=== PATIENT | male | born 1960 | race Caucasian/White ===

== ENCOUNTER 2019-10-07 10:29 | Outpatient (CLI) | payer MEDICARE, SELFPAY ==
--- NOTE | 2019-10-07 10:36 | XRR_ITS ---
PROCEDURE INFORMATION: Exam: XR Left Shoulder Exam date and time: 10/07/2019 10:50 AM Age: 59 years old Clinical indication: Pain; Shoulder; Left; Additional info: L shoulder pain TECHNIQUE: Imaging protocol: XR Left shoulder. Views: 2 or more views. COMPARISON: No relevant prior studies available. FINDINGS: Bones/joints: Normal. Soft tissues: Normal. XR/XR shoulder LT min 2V* [id number] IMPRESSION: No acute findings.
== END 2019-10-07 10:30 | disposition home or self-care (01) ==
LOC: RAD 10:34
PROVIDERS: PCP Nurse Practitioner Family; Visit Provider Internal Medicine
DX: M25.512 Pain in left shoulder (principal)
CPT/HCPCS: 73030

== ENCOUNTER 2020-09-22 14:38 | Outpatient (CLI) | payer MEDICARE, SELFPAY ==
--- NOTE | 2020-09-22 14:47 | XR_ITS ---
WS: [id number] Exam: XR cervical spine 3V* [id number] Date/Time of Exam: 09/22/2020 2:47 PM Reason For Exam: BACK PAIN Comparison 02/29/2016. No fracture or dislocation. There is straightening. Mild to moderate facet DJD at all levels. Mild de generative disc thinning at C5-6 and C6-7. The odontoid is intact. Normal paraspinal soft tissues. XR/XR cervical spine 3V* [id number] IMPRESSION: 1. No fracture or malalignment. 2. Mild degenerative changes. Straightening.
--- NOTE | 2020-09-22 14:47 | XR_ITS ---
WS: [id number] Exam: XR thoracic spine 2V [id number] Date/Time of Exam: 09/22/2020 2:47 PM Reason For Exam: BACK PAIN Comparison 12/08/2014. No fracture or dislocation. Slight spondylosis. Osteopenia. Normal paraspinal soft tissues. XR/XR thoracic spine 2V 51230 IMPRESSION: 1. No fracture or malalignment. 2. Minimal degenerative changes and osteopenia.
--- NOTE | 2020-09-22 14:48 | XR_ITS ---
WS: [id number] Exam: XR lumbar spine 2-3V* [id number] Date/Time of Exam: 09/22/2020 2:48 PM Reason For Exam: BACK PAIN No fracture or dislocation. Disc spaces are preserved. Posterior elements are intact. Osteopenia. Min imal spondylosis. XR/XR lumbar spine 2-3V* 16795 IMPRESSION: 1. No fracture or malalignment. 2. Minimal degenerative changes and osteopenia.
== END 2020-09-22 14:39 | disposition home or self-care (01) ==
PROVIDERS: PCP Nurse Practitioner Family; Visit Provider Internal Medicine
DX: M54.5 Low back pain (principal); M54.6 Pain in thoracic spine; M54.2 Cervicalgia; M85.88 Other specified disorders of bone density and structure, other site
CPT/HCPCS: 72040; 72070; 72100

== ENCOUNTER 2020-09-29 06:00 | Outpatient (RCR) | payer MEDICARE, SELFPAY | END 2020-10-28 23:59 | disposition home or self-care (01) | LOC: SPT 06:00 | PROVIDERS: PCP Nurse Practitioner Family; Referring Provider Nurse Practitioner Family; Visit Provider Nurse Practitioner Family | DX: M85.80 Other specified disorders of bone density and structure, unspecified site (principal); M51.34 Other intervertebral disc degeneration, thoracic region; M51.36 Other intervertebral disc degeneration, lumbar region | CPT/HCPCS: 97161 ==

== ENCOUNTER → 2020-10-06 08:05 | Outpatient (BNVA) | payer MEDICARE, SELFPAY | PROVIDERS: PCP Nurse Practitioner Family; Referring Provider Nurse Practitioner Family; Visit Provider Specialist | DX: R20.2 Paresthesia of skin (principal); R20.0 Anesthesia of skin; Z87.891 Personal history of nicotine dependence | CPT/HCPCS: 95910 ==

== ENCOUNTER → 2020-10-27 15:39 | Outpatient (BNVA) | payer MEDICARE, SELFPAY | PROVIDERS: PCP Nurse Practitioner Family; Referring Provider Nurse Practitioner Family; Visit Provider Orthopaedic Surgery | DX: M54.9 Dorsalgia, unspecified (principal); R20.0 Anesthesia of skin; R20.2 Paresthesia of skin; M54.2 Cervicalgia | CPT/HCPCS: 72040 ==

== ENCOUNTER 2021-05-19 14:05 | Outpatient (CLI) | payer MEDICARE, SELFPAY ==
--- NOTE | 2021-05-19 14:26 | XR_ITS ---
WS: [id number] DEXA (DUAL ENERGY X-RAY ABSORPTIOMETRY) Bone mineral density was performed using a [employer] machine. HISTORY: Degenerative DISC DISEASE COMPARISON: None available. Lumbar spine BMD (L1-L4): 1.331 g/cm2 T score: 0.9 Z score: 0.6 Total hip BMD: Left: 0.998 g/cm2. T score: -0.7 Z score: -0.7 Right: 1.014 g/cm2. T score: -0.6 Z score: -0.6 10 year probability of a major osteoporotic fracture is 5%. XR/XR DEXA axial skeleton* 15698 IMPRESSION: NORMAL BONE MINERAL DENSITY based upon the WHO classification for females.
== END 2021-05-19 14:06 | disposition home or self-care (01) ==
PROVIDERS: PCP Nurse Practitioner Family; Visit Provider Nurse Practitioner Family
DX: M51.34 Other intervertebral disc degeneration, thoracic region (principal); M51.36 Other intervertebral disc degeneration, lumbar region
CPT/HCPCS: 77080

== ENCOUNTER 2021-05-20 13:42 | Outpatient (CLI) | payer MEDICARE, SELFPAY ==
--- NOTE | 2021-05-20 14:03 | XR_ITS ---
WS: [id number] Cervical spine, 3 views, 05/20/2021 Clinical Data: NUMBNESS TINGLING IN L ARM Comparison: Cervical spine, 10/27/2020. Findings: No compression fractures are seen. The disc heights are normal. There is a minimal spur and calcification at the anterior inferior aspect of C5. There is no prevertebral soft tissue swelling. The odontoid is unremarkable. The soft tissues of the neck and the lung apices are normal. XR/XR cervical spine 3V* [id number] Impression: Small spur at C5.
== END 2021-05-20 13:43 | disposition home or self-care (01) ==
PROVIDERS: PCP Nurse Practitioner Family; Visit Provider Nurse Practitioner Family
DX: R20.2 Paresthesia of skin (principal); M46.02 Spinal enthesopathy, cervical region
CPT/HCPCS: 72040

== ENCOUNTER → 2021-10-14 15:55 | Outpatient (BNVA) | payer MEDICARE, SELFPAY | PROVIDERS: PCP Nurse Practitioner Family; Visit Provider Orthopaedic Surgery | DX: M54.9 Dorsalgia, unspecified (principal) | CPT/HCPCS: 72072 ==

== ENCOUNTER 2022-01-12 07:56 | Outpatient (CLI) | payer MEDICARE, SELFPAY ==
--- NOTE | 2022-01-12 08:13 | XR_ITS ---
WS: [id number] Thoracic spine, AP and lateral views, 01/12/2022 Clinical Data: BACK PAIN THORACIC REGION Comparison: Thoracic spine, 10/14/2021. Findings: No compression fractures are seen. The disc heights are normal. Minimal osteoarthritic change of the thoracic vertebral bodies is present. XR/XR thoracic spine 2V [id number] Impression: Mild osteoarthritis of the thoracic spine.
--- NOTE | 2022-01-12 17:58 | XR_ITS ---
WS: [id number] Left shoulder, 3 views, 01/12/2022 Clinical Data: SHOULDER JOINT Pain, left Comparison: None. Findings: No fractures or dislocations are seen. The AC joint is normal. The adjacent left clavicle, left scapu la and ribs are normal. The soft tissues are unremarkable. XR/XR shoulder LT min 2V* [id number] Impression: Negative left shoulder.
== END 2022-01-12 07:57 | disposition home or self-care (01) ==
LOC: RAD 08:04
PROVIDERS: PCP Nurse Practitioner Family; Visit Provider Nurse Practitioner Family
DX: M25.512 Pain in left shoulder (principal); M47.814 Spondylosis without myelopathy or radiculopathy, thoracic region
CPT/HCPCS: 72070; 73030

== ENCOUNTER → 2022-04-11 14:18 | Outpatient (BNVA) | payer MEDICARE, SELFPAY | PROVIDERS: PCP Nurse Practitioner Family; Visit Provider Surgery | DX: Z86.010 Personal history of colon polyps (principal) | CPT/HCPCS: 99203 ==

== ENCOUNTER → 2022-04-12 15:31 | Outpatient (BNVA) | payer MEDICARE, SELFPAY | PROVIDERS: PCP Nurse Practitioner Family; Visit Provider Orthopaedic Surgery | DX: M54.6 Pain in thoracic spine (principal); M54.9 Dorsalgia, unspecified; M47.816 Spondylosis without myelopathy or radiculopathy, lumbar region | CPT/HCPCS: 72070; 72110; 99213 ==

== ENCOUNTER 2022-06-15 09:30 | Day surgery (SDC) | payer MEDICARE, SELFPAY ==
[2022-06-14 12:43] VITALS: BMI 30.7
[2022-06-15] MEDS: sodium chloride 0.9% 1,000 ML 30 ML IV (10:14)
--- NOTE | 2022-06-15 10:19 | P.ANESASSM_ITS ---
Pre-Anesthetic Assessment Height/Weight: Height 1.91 m Weight 111.584 kg Preop Diagnosis: History of colon polyps Operation Date: 06/15/22 11:00 Proposed Procedures p Colonoscopy 53968,Z86.010(Not Applicable) - Erickson Moreira MD Familial anesthetic complications: None Was Beta Lena taken within 24 hours: N/A Was Clonidine taken within 24 hours: N/A Last intake: Intake Last Liquid Date 06/14/22 Last Liquid Time 13:00 Last Solid Date 06/13/22 Last Solid Time 09:00 Social No alcohol and No tobacco Exam alert, oriented x 3, clear to auscultation bilaterally and regular rate & rhythm Airway Submandibular: within normal limits Cervical ROM: Other (Decreased ROM) Mallampati: Class III Dentition: false History/ROS No significant history except as noted and No significant complaints Pulmonary Cough CV/HEM Hypertension None reported Hepatic Enlarged liver GI Hiatal Hernia Metabolic Diabetes Mellitus, Hyperlipidemia and Thyroid Disease Musc/skel Osteoarthritis/DJD Neuropsych Anxiety, Cerebrovascular Accident (13-15 years ago; no deficits), Depression and Neuropathy Anesthetic Plan ASA status: 3 Anesthesia: Anesthesia Evaluation, General and MAC Risk of > 500 ml blood loss (7ml/kg in children): No Medications/Allergies Home Medications Medication Instructions Recorded Confirmed Last Taken Type celecoxib 200 mg capsule 200 mg PO QDAY 08/27/19 06/15/22 06/14/22 08:00 History fenofibrate nanocrystallized 145 145 mg PO QDAY 08/27/19 06/15/22 06/13/22 18:00 History mg tablet gabapentin 300 mg capsule 300 mg PO TID 08/27/19 06/15/22 06/13/22 18:00 History levothyroxine 50 mcg capsule 50 mcg PO QDAY 08/27/19 06/15/22 06/14/22 08:00 History sertraline 50 mg tablet 50 mg PO QDAY 08/27/19 06/15/22 06/14/22 08:00 History sitagliptin 50 mg-metformin 1,000 1 tab PO BID 08/27/19 06/15/22 06/13/22 18:00 History mg tablet (Janumet) trazodone 100 mg tablet 150 mg PO QDAY 08/27/19 06/15/22 06/13/22 18:00 History peg 3350-electrolytes 236 240 ml PO Q10M #4,000 mL 04/11/22 06/15/22 06/14/22 Rx gram-22.74 gram-6.74 gram-5.86 gram solution (Golytely) atorvastatin 20 mg tablet 20 mg PO DAILY 06/14/22 06/15/22 06/14/22 08:00 History hydrocodone 5 mg-acetaminophen 325 1 tab PO DIRECTED 06/14/22 06/15/22 06/14/22 History mg tablet 0800 lisinopril 2.5 mg tablet 2.5 mg PO DAILY 06/14/22 06/15/22 06/14/22 08:00 History Allergies Allergy/AdvReac Type Severity Reaction Status Date / Time No Known Allergies Allergy Verified 06/15/22 10:12 [facility] Anesthesia Medical History Depression Diabetes History of colon polyps Hyperlipidemia Hypertension Hypothyroidism Surgical History History of appendectomy History of eye surgery Family History Unknown Cancer Patient's uncle had history of colon cancer Denies family history of Anesthesia complication Bleeding disorder Social History Smoking and tobacco status: former smoker Quit status (tobacco): has quit using tobacco Former quit date comment: 8 months ago Second hand smoke exposure: Yes Alcohol intake: never Adopted: No Caregiver/support person: Yes Lives independently: Yes Household members: none Housing: House Marital status: Single Highest education level completed: High School Graduate service: No Current occupational status: disabled Current occupational exposures/hazards: No Pets and animals: No History of recent travel: No Sexually active: No Current gender identity: Male Brigitte/Hinduism: Spiritism Special brigitte needs: No Agree to transfusion: No Financial difficulty paying for basics: Decline to Answer Data Anesthesia Cardiac Studies: No Data to Display
[2022-06-15 10:20] LABS: Glucose Point of Care 107 mg/dL (70-110)
--- NOTE | 2022-06-15 12:10 | W.PM.OPSFHP ---
Same Day Surgery H&P Indication for Procedure/HPI DATE OF PROCEDURE: June 15, 2022 CHIEF COMPLAINT/INDICATIONFOR SURGICAL PROCEDURE: History of colon polyp PREOP DIAGNOSIS: History of colon polyps PLANNED PROCEDURE: Operation Date: 06/15/22 11:00 Proposed Procedures p Colonoscopy 55809,Z86.010(Not Applicable) - Erickson Moreira MD 04/11/2022 This is a pleasant 62 years old gentleman referred to my practice to discuss surveillance colonoscopy.? He denies bleeding per rectum or history of colon cancer.? He did have a colonoscopy many years ago and showed polyps. 06/15/2022 Patient comes today for surveillance colonoscopy ROS All systems have been reviewed negative except as for the above or per problem list. Medications/Allergies* Home Medications Medication Instructions Recorded Confirmed Type celecoxib 200 mg capsule 200 mg PO QDAY 08/27/19 06/15/22 History fenofibrate nanocrystallized 145 145 mg PO QDAY 08/27/19 06/15/22 History mg tablet gabapentin 300 mg capsule 300 mg PO TID 08/27/19 06/15/22 History levothyroxine 50 mcg capsule 50 mcg PO QDAY 08/27/19 06/15/22 History sertraline 50 mg tablet 50 mg PO QDAY 08/27/19 06/15/22 History sitagliptin 50 mg-metformin 1,000 1 tab PO BID 08/27/19 06/15/22 History mg tablet (Janumet) trazodone 100 mg tablet 150 mg PO QDAY 08/27/19 06/15/22 History atorvastatin 20 mg tablet 20 mg PO DAILY 06/14/22 06/15/22 History hydrocodone 5 mg-acetaminophen 325 1 tab PO DIRECTED 06/14/22 06/15/22 History mg tablet lisinopril 2.5 mg tablet 2.5 mg PO DAILY 06/14/22 06/15/22 History Allergies/Adverse Reactions Allergy/AdvReac Type Severity Reaction Status Date / Time No Known Allergies Allergy Verified 06/15/22 12:11 Pertinent History/Comorbid Conditions* Medical History (Updated 10/06/20 @ 09:39 by Sylvia Suarez MD) Depression Diabetes History of colon polyps Hyperlipidemia Hypertension Hypothyroidism Surgical History (Updated 08/29/19 @ 09:45 by Erickson Moreira MD) History of appendectomy History of eye surgery Family History (Updated 08/29/19 @ 09:48 by Erickson Moreira MD) Cancer Unknown Patient's uncle had history of colon cancer Denies family history of Anesthesia complication Bleeding disorder Social History Smoking and tobacco status: former smoker Quit status (tobacco): has quit using tobacco Former quit date comment: 8 months ago Second hand smoke exposure: Yes Alcohol intake: never Adopted: No Caregiver/support person: Yes Lives independently: Yes Household members: none Housing: House Marital status: Single Highest education level completed: High School Graduate service: No Current occupational status: disabled Current occupational exposures/hazards: No Pets and animals: No History of recent travel: No Sexually active: No Current gender identity: Male Brigitte/Taoist: Gnosticist Special brigitte needs: No Agree to transfusion: No Financial difficulty paying for basics: Decline to Answer Pertinent Exam Findings alert, oriented x 3, regular rate & rhythm and procedure specific exam findings (Abdominal exam nontender nondistended soft) Recommendations Surgery/Procedure today (Colonoscopy with possible biopsy and possible polypectomy) Coding Level of Care Code Acute Resource Analyst for Karolyn Donaldson
[2022-06-15 12:42] VITALS: BP 112/72; PULSE 72; RESP 16; TEMP 36.1; O2SAT 97
[2022-06-15 12:47] VITALS: BP 133/85; PULSE 75; RESP 18; O2SAT 95
[2022-06-15 12:57] VITALS: BP 145/88; PULSE 66; RESP 18; O2SAT 96
--- NOTE | 2022-06-15 14:43 | ANE.PACU2 ---
Inpatient post-anesthesia follow up: Airway intact: Yes Vital signs: Temperature 97.0 F Pulse Rate 66 Respiratory Rate 18 Blood Pressure 145/88 Pulse Oximetry 96 Oxygen Delivery Me thod Room Air Oxygen Flow Rate Fraction of Inspir ed Oxygen Hydration adequate: Yes Nausea and vomiting: No Pain level: 1 Mental status: Baseline
== END 2022-06-15 13:15 | disposition home or self-care (01) ==
PROVIDERS: PCP Nurse Practitioner Family; Visit Provider Surgery
PROC: 0DJD8ZZ Inspection of Lower Intestinal Tract, Via Natural or Artificial Opening Endoscopic (ICD-10-PCS; CPT 45378; principal; 2022-06-15 11:00)
DX: Z12.11 Encounter for screening for malignant neoplasm of colon (principal); Z86.010 Personal history of colon polyps; E78.5 Hyperlipidemia, unspecified; I10 Essential (primary) hypertension; E03.9 Hypothyroidism, unspecified; Z87.891 Personal history of nicotine dependence; E11.40 Type 2 diabetes mellitus with diabetic neuropathy, unspecified; Z86.73 Personal history of transient ischemic attack (TIA), and cerebral infarction without residual deficits
CPT/HCPCS: 36416; 45385; 82962; 88305; J2704; J7030

== ENCOUNTER 2022-08-26 07:59 | Outpatient (CLI) | payer MEDICARE, SELFPAY ==
--- NOTE | 2022-08-26 09:05 | US_ITS ---
WS: [id number] RIGHT UPPER QUADRANT ULTRASOUND HISTORY: RUQ ABD PAIN COMPARISON: 06/18/2013 Liver: 16.4 cm in length. Liver is slightly enlarged. Very coarse echotexture. The entire liver is no t very well visualized. There is marked attenuation. Hypoechoic area along the RIGHT lobe of the live r was also identified on the prior ultrasound from 2012 and may be an area of fatty sparing. Portal Vein: Normal hepatopetal flow with monophasic waveform. Gallbladder: Cholelithiasis. Numerous stones in the gallbladder. No wall thickening. CBD: 0.4 cm Pancreas: Not visualized. Right kidney: 10.4 cm in length. Normal size and echogenicity. No hydronephrosis or mass. Aorta and IVC: Unremarkable abdominal aorta and IVC. No ascites. US/US abdomen limited [id number] IMPRESSION: 1. Quality of this examination is significantly compromised by body habitus an d very dense liver. 2. Marked attenuation throughout the liver. Hypoechoic region in the RIGHT lob e was also identified on the prior study from 2012 and is probably an area of f atty sparing. Consider further evaluation with CT with contrast. 3. Cholelithiasis. No bile duct dilatation.
== END 2022-08-26 08:00 | disposition home or self-care (01) ==
PROVIDERS: PCP Nurse Practitioner Family; Visit Provider Nurse Practitioner Family
DX: K80.20 Calculus of gallbladder without cholecystitis without obstruction (principal); R10.11 Right upper quadrant pain
CPT/HCPCS: 76705

== ENCOUNTER 2022-11-18 09:48 | Outpatient (CLI) | payer MEDICARE, SELFPAY ==
--- NOTE | 2022-11-18 10:07 | NM_ITS ---
WS: [email or web address] NUCLEAR MEDICINE HIDA SCAN CLINICAL INFORMATION: ABDOMINAL PAIN, RUQ TECHNIQUE: Following intravenous administration of 7.8 mCi of technetium 99m mebrofenin, images of th e abdomen were obtained over the course of 60 minutes. Next, gallbladder ejection fraction was determ ined by obtaining preprandial and one-hour postprandial images of the gallbladder following oral mabel stion of Ensure. COMPARISON: None. FINDINGS: Normal hepatic uptake at 5 minutes. Normal hepatic excretion. Gallbladder is visualized by 30 minutes . No evidence of acute cholecystitis. Normal common bile duct and small bowel activity. Mild hepatome daniela. No evidence of chronic cholecystitis. Gallbladder ejection fraction 64% within normal limits. NM/NM hepatobiliary w phar* [id number] IMPRESSION: 1. No evidence of acute or chronic cholecystitis. 2. Gallbladder ejection fraction 64% within normal limits.
== END 2022-11-18 09:49 | disposition home or self-care (01) ==
LOC: RAD 09:54
PROVIDERS: PCP Nurse Practitioner Family; Visit Provider Nurse Practitioner Family
DX: K80.20 Calculus of gallbladder without cholecystitis without obstruction (principal)
CPT/HCPCS: 78227; A9537

== ENCOUNTER 2022-12-07 12:47 | Outpatient (CLI) | payer MEDICARE, SELFPAY ==
--- NOTE | 2022-12-07 13:18 | CT_ITS ---
WS: [id number] CT ABDOMEN TECHNIQUE: Noncontrast CT of the abdomen with coronal and sagittal reformatted images. CLINICAL INFORMATION: ABDONMINAL PAIN RIGHT UPPER QUAD COMPARISON: CT 2012 And ultrasound August 26, 2022 DLP: 1242.[address] scans at [facility] use at least one of these dose optimization techniques: automated e xposure control; mA and/or kV adjustment per patient size (includes targeted exams where dose is matc hed to clinical indication); or iterative reconstruction. FINDINGS: Contrast not administered due to renal insufficiency. Elevated BUN/creatinine. Cavernous hemangioma previously described on the prior contrast-enhanced CT not well visualized on th e study. Small hepatic cyst liver dome. No visualized lesions in the RIGHT hepatic lobe on this nonco ntrast study. Mild diffuse fatty infiltration liver. Small esophageal hiatal hernia. Mild fatty atrophy of the panc reas. Adrenal glands are normal. No hydronephrosis in either kidney. Caliber abdominal aorta. CT/CT abdomen wo con [id number] IMPRESSION: 1. Cholelithiasis. 2. Mild diffuse fatty infiltration the liver with mild hepatomegaly. 3. Previously described hemangioma in LEFT hepatic lobe not well visualized wi thout contrast. 4. Small hepatic cyst in the dome of the liver measuring 1.5 mm. No other susp icious liver lesions on this noncontrast study 5. No other suspicious findings.
[2022-12-07] MEDS: iohexol 350 mg/mL 500 mL Btl (per mL) PO (13:52)
[2022-12-07 14:34] LABS: Blood Urea Nitrogen 15 mg/dL (8-23); Glomerular Filtration Rate 36.1 mL/min (90-130)
== END 2022-12-07 12:48 | disposition home or self-care (01) ==
PROVIDERS: PCP Nurse Practitioner Family; Visit Provider Nurse Practitioner Family
DX: K80.20 Calculus of gallbladder without cholecystitis without obstruction (principal); K76.0 Fatty (change of) liver, not elsewhere classified; K76.89 Other specified diseases of liver
CPT/HCPCS: 74150; 82565; 84520; Q9967

== ENCOUNTER → 2023-11-23 10:05 | Outpatient (BNVA) | payer OTHER, SELFPAY | PROVIDERS: PCP Nurse Practitioner Family; Visit Provider Family Medicine | DX: E03.9 Hypothyroidism, unspecified (principal); E11.9 Type 2 diabetes mellitus without complications; G89.29 Other chronic pain; F32.9 Major depressive disorder, single episode, unspecified; I10 Essential (primary) hypertension; E78.5 Hyperlipidemia, unspecified; G47.00 Insomnia, unspecified; K76.0 Fatty (change of) liver, not elsewhere classified; R16.0 Hepatomegaly, not elsewhere classified; F79 Unspecified intellectual disabilities | CPT/HCPCS: 80053; 80061; 83036; 84439; 84443; 85025 ==

== ENCOUNTER → 2024-03-26 14:18 | Outpatient (BNVA) | payer OTHER, SELFPAY | PROVIDERS: PCP Nurse Practitioner Family; Visit Provider Orthopaedic Surgery | DX: M54.9 Dorsalgia, unspecified (principal) | CPT/HCPCS: 72072 ==

== ENCOUNTER → 2024-04-08 10:12 | Outpatient (BNVA) | payer OTHER, SELFPAY | PROVIDERS: PCP Family Medicine; Visit Provider Nurse Practitioner Family | DX: J02.9 Acute pharyngitis, unspecified (principal) | CPT/HCPCS: 87071; 87880 ==

== ENCOUNTER 2024-04-18 10:49 | Outpatient (CLI) | payer MEDICARE, SELFPAY ==
--- NOTE | 2024-04-18 11:00 | XR_ITS ---
WS: [id number] Cervical spine, 4 views, 04/18/2024 Clinical Data: cervical radiculopathy and pain Comparison: Cervical spine, 05/20/2021 Findings: No compression fractures are seen. The disc heights are normal. There is a small spur at th e inferior anterior aspect of C5. There is no prevertebral soft tissue swelling. The odontoid is unre markable. The soft tissues of the neck and the lung apices are normal. XR/XR cervical spine 3V* [id number] Impression: Small spur at C5.
== END 2024-04-18 10:50 | disposition home or self-care (01) ==
PROVIDERS: PCP Family Medicine; Visit Provider Family Medicine
DX: M54.2 Cervicalgia (principal); M25.78 Osteophyte, vertebrae; E11.9 Type 2 diabetes mellitus without complications
CPT/HCPCS: 72040; 80053; 83036; 84443; 85025

== ENCOUNTER 2024-06-25 15:46 | Outpatient (CLI) | payer MEDICARE, SELFPAY ==
--- NOTE | 2024-06-25 16:15 | MR_ITS ---
WS: [id number] MRI THORACIC SPINE WITHOUT CONTRAST TECHNIQUE: Sagittal T1, T2 and STIR imaging. Axial T2 imaging. Noncontrast imaging obtained. CLINICAL INFORMATION: M54.6 - Pain in thoracic spine COMPARISON: None. FINDINGS: Mild thoracic curve. Mild thoracic kyphosis. No acute appearing compression fractures. No high-grade central canal stenosis. Moderate facet arthropathy lower thoracic spine. No significant disc extrusio ns or protrusions. Shallow disc protrusions in the cervical spine on the platform software engineer imaging with mild cent ral canal stenosis. Adrenal glands are normal. Normal caliber descending thoracic aorta. Several hemangiomas in the thora cic spine most prominent at T4 T8 and T12. Minimal chronic slight compression of the superior endplat es in the upper thoracic spine at T2, T3 and T4 and lower thoracic spine at T11 and T12. Endplate Deanna morl's node at T12. MR/MR thoracic spin wo con* [id number] IMPRESSION: 1. Mild thoracic curve. Mild thoracic kyphosis. No acute compression fractures . 2. Cord signal is normal. No significant central canal stenosis. 3. Moderate facet arthropathy lower thoracic spine. 4. No significant disc protrusions or extrusions. 5. Slight chronic compression deformity superior endplates T2 T3 and T4 and T1 1 T12. Endplate Schmorl's node at T12.
== END 2024-06-25 15:47 | disposition home or self-care (01) ==
LOC: RAD 15:52
PROVIDERS: PCP Family Medicine; Visit Provider Orthopaedic Surgery
DX: M46.94 Unspecified inflammatory spondylopathy, thoracic region (principal); D18.09 Hemangioma of other sites; M51.44 Schmorl's nodes, thoracic region
CPT/HCPCS: 72146

== ENCOUNTER 2024-07-03 08:00 | Emergency (ER) | payer MEDICARE, SELFPAY ==
[2024-07-03 08:06] VITALS: BP 140/88; PULSE 73; RESP 17; TEMP 36.2; O2SAT 96; BMI 27.7
--- NOTE | 2024-07-03 08:17 | PC.PHAR ---
patient unsure of what he takes at this time. called pharmacy ([facility]) got verbal med list
[2024-07-03 08:28] VITALS: BP 140/88; PULSE 73; RESP 17; O2SAT 96
--- NOTE | 2024-07-03 08:57 | W.ED.BACK ---
HPI - Back Pain/Injury General: Chief Complaint: Back Pain/Injury Stated Complaint: Chest and back pain Time Seen by Provider: 07/03/24 08:10 History of Present Illness: 64-year-old male presents to the emergency department reporting chronic pain of the mid back sometimes radiating up towards the left clavicle and left neck. He reports having this for multiple years. He denies anything new or changed in regards to the pain. Upon further questioning, patient admits that he was fired from Dr. Leon's chronic pain management clinic. I have reviewed the patient's notes and he was recently seen by primary care. It notes that he has been fired from Dr. Hernandez, Dr. San, and [facility]. Patient had been treated with hydrocodone per pain management and now is being treated with gabapentin, duloxetine and Celebrex. Patient has also been seen by orthopedics, Dr. Ewing. See relevant records below: Chronic pain -gabapentin 400mg BID, Duloxetine 30mg qd, celebrex 20mg -hx of bein fired from Dr Leon, Dr. Casanova and [facility]. of note demanded pain medication at our desk top publisher initially prior to being established -seen by Dr. Ewing on 03/28/24 -has been well controlled on above dosage -hx of cervical radiculopathy with L shoulder pain. XR showed C5 bone spur -pending MRI of back per Dr. Ewing. states it was cancelled. pt called but is unaware as to why it was cancelled. -per patient MRI was denied. MRI Thoracic: 1. Mild thoracic curve. Mild thoracic kyphosis. No acute compression fractures. 2. Cord signal is normal. No significant central canal stenosis. 3. Moderate facet arthropathy lower thoracic spine. 4. No significant disc protrusions or extrusions. 5. Slight chronic compression deformity superior endplates T2 T3 and T4 and T11 T12. Endplate Schmorl's node at T12. Related Data Home Medications Medication Instructions Recorded Confirmed sertraline 100 mg tablet 100 mg PO DAILY 07/03/24 07/03/24 Previous Rx's Medication Instructions Recorded sitagliptin phosphate 50 1 tab PO BID #180 tabs 11/24/23 mg-metformin 1,000 mg tablet (Janumet) levothyroxine 50 mcg capsule 50 mcg PO QDAY #90 caps 04/26/24 celecoxib 200 mg capsule 200 mg PO QDAY #90 caps 06/19/24 duloxetine 30 mg capsule,delayed 30 mg PO DAILY #90 caps 06/19/24 release lisinopril 2.5 mg tablet 2.5 mg PO DAILY #90 tabs 06/19/24 Allergies Allergy/AdvReac Type Severity Reaction Status Date / Time No Known Allergies Allergy Verified 07/03/24 08:13 Review of Systems Narrative: Patient endorses ongoing thoracic discomfort, possibly exacerbated by doing some mowing and yard work including lifting some buckets of rocks. He denies any numbness, tingling, chest pain, shortness of breath, weakness. He denies any systemic symptoms or fevers. He does endorse that he is nearly out of his hydrocodone. PFSH ED PFSH: Medical History Hepatomegaly Nonalcoholic hepatosteatosis Insomnia Depression Diabetes Hyperlipidemia Hypertension Hypothyroidism History of colon polyps Surgical History History of appendectomy History of eye surgery Family History Unknown Cancer Patient's uncle had history of colon cancer Denies family history of Anesthesia complication Bleeding disorder Social History Smoking and tobacco/nicotine status: former use of tobacco/nicotine Quit status (tobacco/nicotine): has quit using Former quit date comment: 8 months ago Second hand smoke exposure: Yes Alcohol intake: never Substance/Drug Use: never Adopted: No Caregiver/support person: Yes Lives independently: Yes Household members: none Housing: House Marital status: Single Highest education level completed: High School Graduate service: No Current occupational status: disabled Current occupational exposures/hazards: No Pets and animals: No Sexually active: No Do you think of yourself as: Straight/Heterosexual Current gender identity: Male Brigitte/Muslim: Jain Special brigitte needs: No Agree to transfusion: No Physical Exam Narrative: EXAM NARRATIVE: I extensively palpated the patient's spine, paraspinal structures, periscapular structures, clavicles, etc. There are no deformities. There is no focal tenderness. There are no myofascial trigger points. There is no spasm. No redness, swelling. Patient is moving his upper extremities normally. Strength testing in both upper extremities is normal to push and pull proximally and distally. Radial pulses are 2+. Patient does not appear to be in any discomfort. He has normal movements of the neck and back while repositioning in bed and turning. There is no guarding. No sweating, agitation, tachypnea or tachycardia. Const: COMMON NORMALS: no limitations, alert and well nourished EXAM LIMITATIONS: no altered mental status HENMT: COMMON NORMALS: normocephalic, atraumatic and external ears normal HEAD & SCALP: normocephalic and atraumatic EXTERNAL EAR: Yes external ears normal MOUTH: no muffled voice Eye: COMMON NORMALS: conjunctivae normal and no scleral icterus CONJUNCTIVA: Yes conjunctivae normal Neck/C-Spine: COMMON NORMALS: no JVD GENERAL: Yes normal visual inspection and Yes trachea midline Chest: OTHER: Chest wall, breasts, clavicles all WNL Resp: COMMON NORMALS: normal respiratory effort, No use of accessory muscles and clear to auscultation bilaterally AUSCULTATION: clear to auscultation bilaterally Cardio: COMMON NORMALS: no JVD, regular rate and regular rhythm RATE: regular rate RHYTHM: regular rhythm GI: COMMON NORMALS: Soft to palpation and non-tender PALPATION: Yes Soft to palpation and No Guarding due to palpation present (GI) Extremity: COMMON NORMALS: normal to inspection Neuro: COMMON NORMALS: moves all extremities, no focal motor deficits and no sensory deficits noted SENSORIUM/ORIENTATION: Yes alert SPEECH: speech normal Psych: COMMON NORMALS: mental status grossly normal, Normal thought process present, cooperative, normal affect and speech normal SPEECH: Yes normal speech THOUGHT PROCESS: Normal thought process present Skin: COMMON NORMALS: no rashes or lesions noted, turgor normal and no jaundice GENERAL SKIN EXAM: no rashes or lesions noted and turgor normal Course Vital Signs: Vital signs: Vital Signs Temperature 97.1 F L 07/03/24 08:06 Pulse Rate 73 07/03/24 08:28 Respiratory Rate 17 07/03/24 08:28 Blood Pressure 140/88 07/03/24 08:28 Pulse Oximetry 96 07/03/24 08:28 Oxygen Delivery Me thod Room Air 07/03/24 08:06 MDM - Back Pain/Injury Medical Decision Making This is a pleasant 64-year-old male who has chronic thoracic back pain as well as intermittent episodes of discomfort going into his clavicle and neck. The examination is unremarkable. I have reviewed the patient's recent primary care visit, home meds, MRI of the thoracic spine, and Dr Ewing's note. Primary care has not prescribed the patient opiate at last visit. I can give the patient some oral [place] here for pain control but it would be inappropriate to prescribe opiates from the ER on an ongoing basis, particular because I am not sure why he was fired from his last 3 pain management arrangements. At this time I find no evidence of any emergency requiring immediate imaging, further ER testing or hospitalization. UPDATE: pt drove himself, we cannot give him norco. I'll provide tylenol No radiology studies performed this visit Discharge Plan Discharge Patient Disposition: Home Clinical Impression: Thoracic back pain Chronic pain Qualifiers: Chronic pain type: chronic pain syndrome Qualified Code(s): G89.4 - Chronic pain syndrome Condition: Stable Prescriptions: No Action Janumet 50-1,000 mg tablet 1 tab PO BID Qty: 180 2RF levothyroxine 50 mcg capsule 50 mcg PO QDAY Qty: 90 1RF celecoxib 200 mg capsule 200 mg PO QDAY Qty: 90 1RF duloxetine 30 mg capsule,delayed release(DR/EC) 30 mg PO DAILY Qty: 90 1RF lisinopril 2.5 mg tablet 2.5 mg PO DAILY Qty: 90 1RF sertraline 100 mg tablet 100 mg PO DAILY Discharge Orders: Discharge ED (Routine); Ordered 07/03/24 Ordered By: Ken Gil Referrals: Deep Menendez MD [Primary Care Provider] - 4-7 days (Chronic pain) Patient Instructions: Chronic Back Pain (DC), Back Pain (ED), Opioid Safety, Pain Management Coding Level of Care Code ED Central Station Operator for Karolyn Donaldson
--- NOTE | 2024-07-03 09:04 | ECG_ITS ---
[facility] Date: 2024-07-03 Pat Name: Sidney Foster Department: Room: Gender: Male Final Inspection Supervisor: : 1960 Requested By: Ken Gil Order Number: [id number] Gregory MD: Levy Reeves M.D. Measurements Intervals [place] Rate: 72 P: -22 NC: 140 QRS: 28 QRSD: 88 T: 38 QT: 375 QTc: 413 Interpretive Statements SINUS RHYTHM Compared to ECG 08/30/2017 06:05:01 No significant changes Electronically Signed On 07-03-2024 19:25:22 EDGE CUTTING MACHINE OPERATOR by Levy Reeves M.D. [email or web address]
[2024-07-03 09:30] VITALS: BP 132/79; PULSE 81; RESP 16; O2SAT 96
[2024-07-03] MEDS: acetaminophen 325 mg Tablet 650 MG PO (09:42)
[2024-07-03 09:44] VITALS: BP 141/81; PULSE 79; O2SAT 94
--- NOTE | 2024-07-09 08:43 | DCPLANNER ---
Message sent to pain Management to Follow up with Neck and back pain
== END 2024-07-03 09:46 | disposition home or self-care (01) ==
PROVIDERS: Emergency Provider Emergency Medicine; PCP Family Medicine
DX: M54.89 Other dorsalgia (principal); G89.4 Chronic pain syndrome; Z87.891 Personal history of nicotine dependence; E11.9 Type 2 diabetes mellitus without complications; I10 Essential (primary) hypertension; E78.5 Hyperlipidemia, unspecified
CPT/HCPCS: 36415; 93005; 99283

== ENCOUNTER → 2024-07-04 08:41 | Outpatient (BNVA) | payer MEDICARE, SELFPAY | PROVIDERS: PCP Family Medicine; Visit Provider Orthopaedic Surgery | DX: M54.6 Pain in thoracic spine (principal); G89.29 Other chronic pain | CPT/HCPCS: 99213 ==

== ENCOUNTER 2024-08-14 11:38 | Outpatient (RCR) | payer MEDICARE, SELFPAY | END 2024-08-30 23:59 | disposition home or self-care (01) | LOC: SPT 11:38 | PROVIDERS: PCP Family Medicine; Visit Provider Family Medicine | DX: M54.6 Pain in thoracic spine (principal); G89.29 Other chronic pain | CPT/HCPCS: 97110; 97161 ==

== ENCOUNTER 2024-08-31 06:30 | Outpatient (RCR) | payer MEDICARE, SELFPAY | END 2024-09-23 08:10 | disposition home or self-care (01) | LOC: SPT 06:30 | PROVIDERS: PCP Family Medicine; Visit Provider Family Medicine | DX: M54.59 Other low back pain (principal); G89.29 Other chronic pain | CPT/HCPCS: 97110 ==

== ENCOUNTER → 2024-10-10 13:57 | Outpatient (BNVA) | payer MEDICARE, SELFPAY | PROVIDERS: PCP Family Medicine; Visit Provider Orthopaedic Surgery | DX: M54.2 Cervicalgia (principal); M54.9 Dorsalgia, unspecified; G89.29 Other chronic pain | CPT/HCPCS: 99214 ==

== ENCOUNTER → 2024-10-23 08:24 | Outpatient (BNVA) | payer MEDICARE, SELFPAY | PROVIDERS: PCP Family Medicine; Visit Provider Nurse Practitioner Family | DX: R20.0 Anesthesia of skin (principal); R20.2 Paresthesia of skin; M54.2 Cervicalgia; Z87.891 Personal history of nicotine dependence | CPT/HCPCS: 80053; 80061; 83036; 84439; 84443; 99214 ==

== ENCOUNTER → 2024-11-04 10:04 | Outpatient (BNVA) | payer MEDICARE, SELFPAY | PROVIDERS: PCP Family Medicine; Visit Provider Emergency Medicine | DX: S46.911A Strain of unspecified muscle, fascia and tendon at shoulder and upper arm level, right arm, initial encounter (principal); X58.XXXA Exposure to other specified factors, initial encounter | CPT/HCPCS: 73030 ==

== ENCOUNTER 2024-11-22 06:30 | Emergency (ER) | payer MEDICARE, SELFPAY ==
[2024-11-22 06:38] VITALS: BP 154/99; PULSE 80; RESP 20; TEMP 36.6; O2SAT 98; BMI 34.7
--- NOTE | 2024-11-22 06:43 | XR_ITS ---
WS: [id number] Exam: XR shoulder RT min 2V* [id number] Date/Time of Exam: 11/22/2024 6:54 AM Reason For Exam: pain No fracture noted. Mild degenerative change of the glenohumeral joint and the AC joint. Normal soft tissues. XR/XR shoulder RT min 2V* [id number] IMPRESSION: 1. Minimal DJD.
--- NOTE | 2024-11-22 06:43 | XR_ITS ---
WS: [id number] Exam: XR cervical spine 3V* [id number] Date/Time of Exam: 11/22/2024 6:54 AM Reason For Exam: pain No acute fracture. Disc spaces are maintained. Mild to moderate facet DJD. Normal paraspinal soft tissues. The dens is intact. XR/XR cervical spine 3V* [id number] IMPRESSION: 1. Degenerative facet change. No fracture or malalignment.
[2024-11-22] MEDS: dexamethasone 10 mg/mL INJ IM (07:07)
[2024-11-22] MEDS: ketorolac 30 mg/mL INJ IVP (07:07)
[2024-11-22] MEDS: orphenadrine 30 mg/mL Inj 2 mL 60 MG IM (07:07)
[2024-11-22 07:24] VITALS: BP 150/98; PULSE 73; O2SAT 95
--- NOTE | 2024-11-22 07:40 | ED_ITS ---
HPI - Extremity Problem General: Chief complaint: Extremity Injury, Upper Stated complaint: pain in right shoulder and neck Time Seen by Provider: 11/22/24 06:43 History of Present Illness: 64-[facility] of neck pain that radiates into his hands. He has had this intermittently for a year and he has seen pain clinic for it he has had advanced imaging including MRI. He tells me they have recommended repeat MRI and consideration of surgery. No recent injury fall trauma etc. he has noticed increased discomfort in his hands. He still able to use his hands to prn physical therapist and manipulate items. He has slight increased pain in his right shoulder as well. No trauma to the shoulder or neck. Associated symptoms: Deny chest pain, fever(s) or rash Related Data Home Medications ?Medication ?Instructions ?Recorded ?Confirmed levothyroxine 50 mcg tablet 50 mcg PO DAILY 11/22/24 0 11/22/24 Previous Rx's ?Medication ?Instructions ?Recorded sitagliptin phosphate 50 1 tab PO BID #180 tabs 11/23 mg-metformin 1,000 mg tablet (Janumet) celecoxib 200 mg capsule 200 mg PO QDAY #90 caps 06/01 duloxetine 30 mg capsule,delayed 30 mg PO DAILY #90 ca ps 06/19/24 release cyclobenzaprine 10 mg tablet 10 mg PO TID PRN muscle s pasm #60 11/12/24 tabs lisinopril 2.5 mg tablet 2.5 mg PO DAILY #90 tabs prednisone 20 mg tablet 20 mg PO TID #15 tabs tizanidine 4 mg tablet 4 mg PO Q6H PRN muscle spast icity 11/22/24 #20 tabs Allergies Allergy/AdvReac Type Severity Reaction Status Date / Time No Known Allergies Allergy Verified 11/21/24 17:20 Review of Systems Const: Denies: fever(s) or chills Card: Denies: chest pain Resp: Denies: dyspnea GI: Denies: abdominal pain : Denies: dysuria, urinary frequency or urinary urgency Musc: Reports: neck pain and joint pain (Right shoulder); Denies: back pain Skin/Breast: Denies: rash PFSH ED PFSH: Medical History Bilateral shoulder pain Hepatomegaly Nonalcoholic hepatosteatosis Insomnia Depression Diabetes Hyperlipidemia Hypertension Hypothyroidism History of colon polyps Surgical History History of appendectomy History of eye surgery Family History Unknown Cancer Patient's uncle had history of colon cancer Denies family history of Anesthesia complication Bleeding disorder Social History Smoking and tobacco/nicotine status: former use of tobacco/nicotine Quit status (tobacco/nicotine): has quit using Former quit date comment: 8 months ago Second hand smoke exposure: Yes Alcohol intake: never Substance/Drug Use: never Adopted: No Caregiver/support person: Yes Lives independently: Yes Household members: none Housing: House Marital status: Single Highest education level completed: High School Graduate service: No Current occupational status: disabled Current occupational exposures/hazards: No Pets and animals: No Sexually active: No Do you think of yourself as: Straight/Heterosexual Current gender identity: Male Brigitte/Faith: Islam Special brigitte needs: No Agree to transfusion: No Physical Exam Const: COMMON NORMALS: no acute distress GENERAL APPEARANCE: cooperative and comfortable ORIENTATION/CONSCIOUSNESS: Yes awake, Yes oriented to person, Yes oriented to place and Yes oriented to time HENMT: COMMON NORMALS: normocephalic, atraumatic and hearing grossly normal bilaterally HEAD & SCALP: normocephalic and atraumatic Resp: COMMON NORMALS: normal respiratory effort, No retractions, No use of accessory muscles and clear to auscultation bilaterally AUSCULTATION: clear to auscultation bilaterally Cardio: COMMON NORMALS: regular rate, regular rhythm and No murmurs present (Cardio) RATE: regular rate RHYTHM: regular rhythm Extremity: COMMON NORMALS: normal to inspection, capillary refill normal, no clubbing, cyanosis or edema, no calf tenderness and no pedal edema OTHER: Limited active abduction on the left shoulder negative impingement sign. Sensation in the upper extremities normal to light and sharp touch neurovascularly intact Neuro: SENSORIUM/ORIENTATION: Yes oriented to person, Yes oriented to place and Yes oriented to time Skin: COMMON NORMALS: no rashes or lesions noted GENERAL SKIN EXAM: no rashes or lesions noted Course Vital Signs: Vital signs: Vital Signs Temperature 98 F 11/22/24 06:38 Pulse Rate 73 11/22/24 07:24 Respiratory Rate 20 H 11/22/24 06:38 Blood Pressure 150/98 11/22/24 07:24 Pulse Oximetry 95 11/22/24 07:24 MDM - Extremity (Nontraumatic) Medical Decision Making Patient has had extensive workup through pain clinic. He states he has had imaging previously including an MRI. He tells me he has been advised to consider surgery and they were looking at repeating his MRI. This has been going on including the report of numbness in his hands for over a year. Patient given ketorolac prednisone and Norflex in the emergency room. Will discharge home replace cyclobenzaprine with tizanidine for 10 days. Additionally on prednisone taper encourage patient to follow-up with pain clinic. Medical Records I reviewed the patient's medical records. Lab Data I reviewed the patient's lab results. XR interpretation done by ED provider, pending radiology final review ED provider radiology interpretation(s): Cervical spine no fracture normal alignment. No fracture no subluxation. Right shoulder x-ray AC joint normal no clavicle fracture no acute fractures no signs of dislocation other osseous structures normal. Limited portion of the lung matthews seen does not show acute abnormality. Discharge Plan Discharge Patient Disposition: Home Clinical Impression: Chronic neck pain Condition: Stable Prescriptions: New tizanidine 4 mg tablet 4 mg PO Q6H PRN (Reason: muscle spasticity) Qty: 20 0RF Rx Instructions: do not exceed 3 doses per 24 hrs prednisone 20 mg tablet 20 mg PO TID Qty: 15 0RF Rx Instructions: 1 p.o. 3 times daily x3 days, 1 p.o. twice daily x2 days, 1 p.o. daily x2 days No Action cyclobenzaprine 10 mg tablet 10 mg PO TID PRN (Reason: muscle spasm) Qty: 60 1RF Janumet 50-1,000 mg tablet 1 tab PO BID Qty: 180 2RF celecoxib 200 mg capsule 200 mg PO QDAY Qty: 90 1RF duloxetine 30 mg capsule,delayed release(DR/EC) 30 mg PO DAILY Qty: 90 1RF lisinopril 2.5 mg tablet 2.5 mg PO DAILY Qty: 90 1RF levothyroxine 50 mcg tablet 50 mcg PO DAILY Discharge Orders: Discharge ED (Routine); Ordered 11/22/24 Ordered By: Juanpablo Hollis Referrals: Deep Menendez MD [Primary Care Provider] - Patient Instructions: Opioid Safety, Pain Management Activity Restrictions/Additional Instructions: [email or web address] It is very important that you follow up as instructed or that you return to the Emergency Department should you have concerns or if your condition changes or worsens in any way. You were seen this morning with complaints of neck pain which has been chronic. You are given prednisone and a prednisone taper to use for a week. Hold the cyclobenzaprine and instead use tizanidine for the next 7 to 10 days. Follow-up with the pain clinic to see if they wish to pursue further treatment options Print Language: Kiswahili Coding Level of Care Code ED Animal Anatomy Teacher for Karolyn Donaldson
== END 2024-11-22 07:50 | disposition home or self-care (01) ==
PROVIDERS: Emergency Provider Family Medicine; PCP Family Medicine
DX: M54.2 Cervicalgia (principal); Z87.891 Personal history of nicotine dependence; E11.9 Type 2 diabetes mellitus without complications; E78.5 Hyperlipidemia, unspecified; I10 Essential (primary) hypertension
CPT/HCPCS: 72040; 73030; 96372; 96374; 99284; J1100; J1885; J2360

== ENCOUNTER → 2025-06-16 15:16 | Outpatient (BNVA) | payer MEDICARE, SELFPAY | PROVIDERS: PCP Family Medicine; Visit Provider Family Medicine | DX: E03.9 Hypothyroidism, unspecified (principal); E11.9 Type 2 diabetes mellitus without complications | CPT/HCPCS: 80053; 80061; 83036; 83721; 84439; 84443; 85025 ==

== ENCOUNTER → 2025-07-08 09:46 | Outpatient (BNVA) | payer MEDICARE, SELFPAY | PROVIDERS: PCP Family Medicine; Visit Provider Orthopaedic Surgery | DX: M54.2 Cervicalgia (principal) | CPT/HCPCS: 72050; 99213 ==